=== PATIENT | female | born 1950 | race Caucasian/White ===

== ENCOUNTER 2022-12-21 14:57 | Emergency (ER) | payer MEDICARE, SELFPAY ==
[2022-12-21 15:01] VITALS: BP 135/72; PULSE 95; RESP 20; TEMP 36.9; O2SAT 97; BMI 22.6
--- NOTE | 2022-12-21 15:22 | ED.GENADULT ---
HPI - General Adult General Time Seen by Provider: 15:22 Date Seen: 12/21/22 Chief complaint: Abdominal Pain Stated complaint: stomach pain Time Seen by Provider: 12/21/22 14:58 Source: patient Limitations: no limitations History of Present Illness HPI narrative: Chato is a 72-year-old female with no past medical history presents emergency department via private car with with abdominal pain. Patient states she developed lower abdominal pain on Wednesday, this continued throughout the weekend, pain is mostly lower, she feels gassy and bloated, she does get intermittent left lower quadrant cramping, her last bowel movement was Wednesday, she usually is pretty regular, she did take some milk of Mag to help with her bowel movements, she denies any urinary complaints, no blood in the stool. No associated nausea vomiting, she had been eating throughout the weekend, she did not eat anything today, no changes with food with the pain. Has no history of any abdominal surgeries, she had a colonoscopy 5 years ago which was normal. No fevers but she did have some sweats last night, she did not take her temperature. Pain is minimal at this time. Related Data Home Medications Medication Instructions Recorded Confirmed No Known Home Medications 10/20/22 10/20/22 Previous Rx's Medication Instructions Recorded ciprofloxacin HCl 500 mg tablet 500 mg PO BID 10 days #20 tabs 12/21/22 metronidazole 500 mg tablet 500 mg PO TID 10 days #30 tabs 12/21/22 Allergies Allergy/AdvReac Type Severity Reaction Status Date / Time penicillin Allergy Intermediate Rash Uncoded 10/20/22 08:36 Review of Systems Status of ROS: Reports: 10 or more systems reviewed and unremarkable except as noted in History and below [facility] Medical History Cerumen impaction ?H61.20 - Impacted cerumen, unspecified ear (ICD-10) Social History Smoking Status: Never smoker Non-prescribed substance use: denies use Exam Narrative: Exam Narrative: General: No obvious distress sitting comfortably, she is nontoxic in appearance HEENT: Tympanic membranes within normal limits bilaterally, oropharynx is clear and moist, pupils equal round reactive to light extraocular muscles intact Neck: Full range of motion, supple Heart: Normal sinus rhythm S1-S2 Lungs: CTA bilaterally Abdomen: Soft, tender to palpation left lower quadrant, no distension, bowel sounds present Muscle skeletal: +5 strength upper lower extremities Neuro: Alert awake and oriented x3 Const: Vital Signs, click to edit/add: Vital Signs - 24 hr 12/21/22 15:01 Temperature 98.5 F Pulse Rate [Pulse Oximeter] 95 Respiratory Rate 20 Blood Pressure [Ri ght Upper Arm] 135/72 Pulse Oximetry 97 Oxygen Delivery Me thod Room Air Course Course Hospital Course: 3:10 PM: [place], vitals are normal at this time, workup will include CBC, CRP, CMP, lipase and urinalysis, patient does not want anything for pain, she does not want an IV at this time, differential diagnosis include life-threatening of appendicitis, aortic aneurysm, mesentery ischemia, bowel perforation, volvulus and bowel obstruction. Other differential diagnosis include IBD, cholecystitis pancreatitis hepatitis gastritis diverticulitis GERD, pyelonephritis UTI, renal stone, ovarian cyst/torsion. Likely rule out diverticulitis. Reevaluation(s) Time of Reevaluation #1: 17:22 Reevaluation #1: Imaging IMPRESSION: Acute uncomplicated sigmoid diverticulitis. CBC showed no leukocytosis, mild elevation neutrophil number 79.2, mild elevation in CRP is 6.4, urinalysis showed trace leukocyte esterase and positive nitrite, 1+ protein, moderate bacteria, urine culture was sent, metabolic panel showed mildly elevated total bilirubin 2.0. Imaging showed acute uncomplicated sigmoid diverticulitis. Due to patient's allergy to penicillin plan to treat, ciprofloxacin 500 mg b.i.d. and Flagyl 500 mg t.i.d. over the next 10 days, she should follow up with primary care provider over the next 3-5 days, return precautions given. Vital Signs Vital signs: Initial Vital Signs Temperature 98.5 F 12/21/22 15:01 Temperature Source Temporal Artery Scan 12/21/22 15:01 Pulse Rate 95 12/21/22 15:01 Pulse Rhythm Regular 12/21/22 15:01 Respiratory Rate 20 12/21/22 15:01 Blood Pressure 135/72 12/21/22 15:01 Blood Pressure Mean 93 12/21/22 15:01 Blood Pressure Position Sitting 12/21/22 15:01 Pulse Oximetry 97 12/21/22 15:01 Oxygen Delivery Method Room Air 12/21/22 15:01 Vital Signs Temperature 98.5 F 12/21/22 15:01 Pulse Rate 95 12/21/22 15:01 Respiratory Rate 20 12/21/22 15:01 Blood Pressure 135/72 12/21/22 15:01 Pulse Oximetry 97 12/21/22 15:01 Oxygen Delivery Method Room Air 12/21/22 15:01 Temperature 98.5 F 12/21/22 15:01 Pulse Rate 95 12/21/22 15:01 Respiratory Rate 20 12/21/22 15:01 Blood Pressure 135/72 12/21/22 15:01 Pulse Oximetry 97 12/21/22 15:01 Oxygen Delivery Method Room Air 12/21/22 15:01 Medical Decision Making Lab Data Labs: Lab Results 12/21/22 12/21/22 Range/Units 15:43 15:47 WBC 10.84 (4.50-11.00) K/uL RBC 4.54 (4.00-5.20) m/uL Hgb 13.8 (12.0-16.0) gm/dL Hct 42.8 (33.0-51.0) % MCV 94 (80-100) fL MCH 30 (26-34) pg MCHC 32 (32-36) gm/dL RDW Coeff of Lazaro 12.9 (11.5-15.5) % Plt Count 176 (140-440) K/uL Neut % (Auto) 79.2 H (42.0-72.0) % Lymph % (Auto) 13.4 L (20-44) % [place] % (Auto) 6.6 (0.0-11.0) % Eos % (Auto) 0.4 (0.0-7.0) % Baso % (Auto) 0.3 (0.0-3.0) % Neut # (Auto) 8.60 H (1.7-7.0) K/uL Lymph # (Auto) 1.50 (0.90-2.90) K/uL [place] # (Auto) 0.70 (0.00-0.90) K/UL Eos # (Auto) 0.04 (0.00-0.50) K/uL Baso # (Auto) 0.03 (0.00-0.30) K/uL Abs Immat Gran (auto) 0.01 (0.00-0.30) K/uL Imm/Tot Granulo (auto) 0.1 % Sodium 137 (135-149) mmol/L Potassium 4.1 (3.6-5.1) mmol/L Chloride 101 (96-114) mmol/L Carbon Dioxide 27 (20-32) mmol/L BUN 16 (7-30) mg/dL Creatinine 1.0 (0.5-1.5) mg/dL Estimated Creat Clear 49.00 Estimated GFR 61 ml/min Glucose 104 (60-115) mg/dL Calcium 9.1 (8.4-10.6) mg/dL Total Bilirubin 2.0 H (0.1-1.5) mg/dL AST 18 (12-35) U/L ALT 12 (4-35) U/L Alkaline Phosphatase 72 (40-150) U/L C-Reactive Protein 6.4 H (0.5-1.0) mg/dL Total Protein 7.8 (6.0-8.3) g/dL Albumin 4.3 (3.3-5.0) g/dL Lipase 37 (23-300) U/L Urine Color [place] A (Yellow) Urine Appearance Clear (Clear) Urine pH 5.0 (5.0-8.5) Ur Specific [place] 1.025 (1.000-1.030) Urine Protein 1+ A (Negative) Urine Glucose (UA) Negative (Negative) Urine Ketones 2+ A (Negative) Urine Blood Trace-intact A (Negative) Urine Nitrite Positive A (Negative) Urine Bilirubin 2+ A (Negative) Urine Urobilinogen 0.2 (0.2-1.0) Ur Leukocyte Esterase Trace A (Negative) Urine RBC 0-2 (0-2) Urine WBC 2-5 (0-5) Ur Squamous Epith Cells Few (None-Few) Urine Bacteria Moderate A (None) Fine Granular Casts Few A (None) Discharge Plan Discharge Clinical Impression: Acute diverticulitis Patient Disposition: Home, Self-Care Condition: Improved Instructions: Diverticulitis (ED) Additional Instructions: To slowly increase her diet over the next 3 days, start with clear liquids, high-fiber low-fat, continue with the antibiotics as prescribed, follow-up with primary care provider over the next 3-5 days for ER follow-up and recheck. Activity Level: No Restrictions Discharge Diet: Low Fat/Low Cholesterol and High Fiber Prescriptions: New ciprofloxacin HCl 500 mg tablet 500 mg PO BID 10 Days Qty: 20 0RF metronidazole 500 mg tablet 500 mg PO TID 10 Days Qty: 30 0RF No Action No Known Home Medications Follow Up/Referrals: Jess Sheppard MD [Primary Care Provider] - Stand Alone Forms: [employer] Info Instructions
[2022-12-21 15:46] LABS: Appearance Urine Clear (Clear); Bilirubin Urine 2+ (Negative); Blood Urine Trace-intact (Negative); Color Urine Amber (Yellow); Glucose Urine Negative (Negative); Ketones Urine 2+ (Negative); Leukocyte Esterase Urine Trace (Negative); Nitrite Urine Positive (Negative); Protein Urine 1+ (Negative); Specific Gravity Urine 1.025 (1.000-1.030); Urobilinogen Urine 0.2 (0.2-1.0)
[2022-12-21 15:56] LABS: Basophils Absolute Auto 0.03 K/uL (0.00-0.30); Basophils Percent Auto 0.3 % (0.0-3.0); Eosinophils Absolute Auto 0.04 K/uL (0.00-0.50); Eosinophils Percent Auto 0.4 % (0.0-7.0); Hematocrit 42.8 % (33.0-51.0); Hemoglobin* 13.8 gm/dL (12.0-16.0); Immature Granulocytes Abs Auto 0.01 K/uL (0.00-0.30); Immature Granulocytes Pct Auto 0.1 %; Lymphocytes Percent Auto 13.4 % (20-44); Mean Corpuscular HGB Conc 32 gm/dL (32-36); Mean Corpuscular Hemoglobin 30 pg (26-34); Mean Corpuscular Volume 94 fL (80-100); Monocytes Percent Auto 6.6 % (0.0-11.0); Neutrophils Percent Auto 79.2 % (42.0-72.0); Platelet Count* 176 K/uL (140-440); RDW Coefficient of Variation % 12.9 % (11.5-15.5); Red Blood Count 4.54 m/uL (4.00-5.20); White Blood Count* 10.84 K/uL (4.50-11.00)
[2022-12-21 16:08] LABS: Slide Review Reflex No
[2022-12-21 16:09] LABS: Albumin* 4.3 g/dL (3.3-5.0); Chloride* 101 mmol/L (96-114); Sodium* 137 mmol/L (135-149)
[2022-12-21 16:09] LABS: RBC Urine 0-2 (0-2); Squamous Epithelial Cell Urine Few (None-Few)
[2022-12-21 16:10] LABS: Bacteria Urine Moderate; Fine Granular Casts Urine Few
[2022-12-21 16:10] LABS: Potassium* 4.1 mmol/L (3.6-5.1)
[2022-12-21 16:12] LABS: Carbon Dioxide* 27 mmol/L (20-32); Estimated Glomerular Filt Rate 61 ml/min
[2022-12-21 16:13] LABS: Alanine Aminotransferase* 12 U/L (4-35); Alkaline Phosphatase* 72 U/L (40-150); Aspartate Amino Transferase* 18 U/L (12-35); Blood Urea Nitrogen* 16 mg/dL (7-30); Calcium* 9.1 mg/dL (8.4-10.6); Glucose* 104 mg/dL (60-115); Lipase* 37 U/L (23-300); Total Protein* 7.8 g/dL (6.0-8.3)
[2022-12-21 16:15] LABS: C Reactive Protein* 6.4 mg/dL (0.5-1.0)
--- NOTE | 2022-12-21 16:40 | CRLHL7_ITS ---
For Patients: As a result of the Century Cures Act, medical imaging exams and procedure reports are released immediately into your electronic medical record. You may view this report before your referring provider. If you have questions, please contact your health care provider. INDICATION: Lower quadrant pain diverticulitis.. TECHNIQUE: CT abdomen and pelvis without contrast. COMPARISON: None. FINDINGS: Limited evaluation of the intra-abdominal solid organs without IV contrast. Lower chest: Small to moderate pericardial effusion. Liver: Normal in size and attenuation. No suspicious masses. Gallbladder and bile ducts: Probable gallbladder sludge is noted. No radiopaque gallstones. No pericholecystic fluid. Pancreas: Unremarkable. No mass or inflammation. Spleen: Normal in size. No masses. Adrenal glands: Normal in size. No nodules. Kidneys: Normal in size. No suspicious masses, stones, or hydronephrosis. GI tract: Scattered colonic diverticuli. Wall thickening within the sigmoid colon. Surrounding fat stranding is noted. Mild thickening of the adjacent peritoneum. No focal drainable fluid collections. No evidence of free air. Normal appendix. No bowel obstruction. Small hiatal hernia. Vasculature: Abdominal aorta is normal in caliber. Lymph nodes: No lymphadenopathy. Peritoneum/Abdominal Wall: Unremarkable. No sign of mass or infiltration. No free air or significant free fluid. Pelvis: Unremarkable. No pelvic masses. Bones: 2.6 centimeter well-defined sclerotic lesion in the right ilium, likely bone island. Otherwise, unremarkable for age. IMPRESSION: Acute uncomplicated sigmoid diverticulitis. Please note that all CT scans at this facility use dose modulation, iterative reconstruction, and/or weight-based dosing when appropriate to reduce radiation dose to as low as reasonably achievable. Dictated by Pattie Mcfarland MD @ 12/21/2022 5:10:08 PM (Electronically Signed)
[2022-12-21 18:03] VITALS: BP 129/61; PULSE 82; RESP 14; TEMP 36.9
== END 2022-12-21 18:04 | disposition home or self-care (01) ==
PROVIDERS: Emergency Provider Student in an Organized Health Care Education/Training Program; PCP Family Medicine
DX: K57.92 Diverticulitis of intestine, part unspecified, without perforation or abscess without bleeding (principal)
CPT/HCPCS: 36415; 74176; 80053; 81003; 81015; 83690; 85025; 86140; 87086; 99283; 99284

== ENCOUNTER 2023-02-11 12:54 | Outpatient (CLI) | payer MEDICARE, SELFPAY ==
--- NOTE | 2023-02-11 13:00 | CRLHL7_ITS ---
For Patients: As a result of the Century Cures Act, medical imaging exams and procedure reports are released immediately into your electronic medical record. You may view this report before your referring provider. If you have questions, please contact your health care provider. DXA BONE MINERAL DENSITY STUDY Reason for exam: Osteopenia. Current height (in): 67. Weight (lb): 145. Menopause age: 57. Ethnicity: White. 1. Have you had a previous hip or vertebral fracture? No. 2. Have you had any fractures during your adult life which did not result from significant trauma (e.g., auto accident)? No. 3. Did either of your parents have a hip fracture? Yes. 4. Do you smoke? No. 5. Have you ever taken Glucocorticoids? No. 6. Do you have rheumatoid arthritis? No. 7. Do you have secondary osteoporosis? No. 8. Do you drink 3 or more alcoholic drinks per day? No. 9. Are you being treated for osteoporosis? No. 10. Have you ever taken any of the following medications: Actonel, Evista, Fosamax, Miacalcin, Reclast, Boniva, Forteo, HRT (i.e. estrogen/hormone therapy), Protelos, Prolia, Vitamin D, Calcium, other ??? please specify. ANSWER: Yes, Vitamin D, calcium. 11. Do you have any of the following medical conditions: Anorexia or bulimia, asthma or emphysema, end stage renal disease, hyperparathyroidism, any seizure disorders, cancer, inflammatory bowel diseases, hysterectomy, other ??? please specify. ANSWER: No. 12. What was your maximum height (inches)? 67. 13. Do you perform weight bearing exercise regularly? No. 14. Do you regularly consume dairy products? Yes. 15. Do you drink caffeinated beverages? No. 16. At what age did your period start? 13. 17. Are you premenopausal? No. 18. How many full term pregnancies have you had? 0. 19. Have you ever missed your period for more than 6 months in a row (not including or menopause)? No. TECHNIQUE: Bone mineral density study was performed using the [employer]. FINDINGS: The results of the study expressed as bone mineral density (BMD) are as follows: Lumbar spine L1 to L4: BMD: 0.778 g/cm2. T-score: -2.4. Z-score: -0.3. Neck Left: BMD: 0.561 g/cm2. T-score: -2.6. Z-score: -0.8. Right: BMD: 0.627 g/cm2. T-score: -2.0. Z-score: -0.2. Total Left: BMD: 0.742 g/cm2. T-score: -1.6. Z-score: -0.1. Right: BMD: 0.750 g/cm2. T-score: -1.6. Z-score: -0.1. IMPRESSION: Osteoporosis. *Comparison exams done prior to 10/2019 were performed on different unit, [employer]. COMPARISON: Compared with scan of 06/15/2019, the bone mineral density has increased by 2.0 percent at the spine and increased by 9.6 percent at the hip. Lee Billy M.D. Diagnostic Radiologist [email or web address] [place]/Dictated by: Lee Billy MD @ 02/11/2023 1:43:00 PM (Electronically Signed)
== END 2023-02-11 12:55 | disposition home or self-care (01) ==
PROVIDERS: PCP Internal Medicine; Visit Provider Internal Medicine
DX: M85.80 Other specified disorders of bone density and structure, unspecified site (principal); M81.0 Age-related osteoporosis without current pathological fracture
CPT/HCPCS: 77080

== ENCOUNTER 2023-03-08 11:52 | Outpatient (CLI) | payer MEDICARE, SELFPAY | END 2023-03-08 11:53 | disposition home or self-care (01) | LOC: NFLDREF 11:52 | PROVIDERS: PCP Internal Medicine; Visit Provider Internal Medicine | DX: M81.0 Age-related osteoporosis without current pathological fracture (principal) | CPT/HCPCS: 82306 ==

== ENCOUNTER 2023-03-09 09:32 | Outpatient (CLI) | payer MEDICARE, SELFPAY ==
--- NOTE | 2023-03-09 09:45 | CRLHL7_ITS ---
For Patients: As a result of the Century Cures Act, medical imaging exams and procedure reports are released immediately into your electronic medical record. You may view this report before your referring provider. If you have questions, please contact your health care provider. BILATERAL SCREENING MAMMOGRAM WITH COMPUTER-AIDED DETECTION AND TOMOSYNTHESIS TECHNIQUE: CC and MLO views were obtained. These mammographic images have been obtained using full-field digital technique. These mammographic images were interpreted with the benefit of computer-aided detection. Breast Tomosynthesis was used in this interpretation. COMPARISON FILM: 11/12/20, 11/30/18. FINDINGS: The breasts are heterogeneously dense, which may obscure small masses IMPRESSION: There is no radiographic evidence for malignancy. ASSESSMENT: BI-RADS Category 1: Negative RECOMMENDATION: Routine screening mammogram in 1 year. A lay language report of this examination will be provided to the patient. Lee Billy M.D. Diagnostic Radiologist [email or web address] [place]/Dictated by: Lee Billy MD @ 03/09/2023 12:50:00 PM (Electronically Signed)
== END 2023-03-09 09:33 | disposition home or self-care (01) ==
LOC: MAMMO 09:33
PROVIDERS: PCP Internal Medicine; Visit Provider Internal Medicine
DX: Z12.31 Encounter for screening mammogram for malignant neoplasm of breast (principal); R92.2 Inconclusive mammogram
CPT/HCPCS: 77063; 77067

== ENCOUNTER 2024-10-17 11:04 | Outpatient (CLI) | payer MEDICARE, SELFPAY | END 2024-10-17 11:05 | disposition home or self-care (01) | PROVIDERS: PCP Internal Medicine; Visit Provider Internal Medicine | DX: E03.9 Hypothyroidism, unspecified (principal); M81.0 Age-related osteoporosis without current pathological fracture; I48.91 Unspecified atrial fibrillation | CPT/HCPCS: 80053; 82306; 84443 ==

== ENCOUNTER 2024-10-30 08:45 | Outpatient (CLI) | payer MEDICARE, SELFPAY | END 2024-10-30 08:46 | disposition home or self-care (01) | LOC: RAD 08:46 | PROVIDERS: PCP Internal Medicine; Visit Provider Internal Medicine | DX: I48.91 Unspecified atrial fibrillation (principal); I51.7 Cardiomegaly; I07.1 Rheumatic tricuspid insufficiency; I34.0 Nonrheumatic mitral (valve) insufficiency; I31.39 Other pericardial effusion (noninflammatory) | CPT/HCPCS: 93306 ==

== ENCOUNTER 2025-01-30 11:24 | Outpatient (CLI) | payer MEDICARE, SELFPAY ==
--- NOTE | 2025-01-30 11:30 | CRLHL7_ITS ---
For Patients: As a result of the Century Cures Act, medical imaging exams and procedure reports are released immediately into your electronic medical record. You may view this report before your referring provider. If you have questions, please contact your health care provider. INDICATION: BILATERAL SCREENING MAMMOGRAM, ASYMPTOMATIC 74 Y/O FEMALE COMPARISON: 03/09/2023, 11/12/2020, 11/30/2018 TECHNIQUE: Digital mammogram in CC and MLO projections including computer-aided detection (CAD) and tomosynthesis. BREAST COMPOSITION: The breasts are heterogeneously dense, which may obscure small masses. FINDINGS: No suspicious findings. ASSESSMENT: BI-RADS 1 Negative RECOMMENDATION: Annual screening mammogram. A lay language report of this examination will be provided to the patient. Dictated by: Lee Billy MD @ 01/30/2025 12:25:19 (Electronically Signed)
== END 2025-01-30 11:25 | disposition home or self-care (01) ==
LOC: MAMMO 11:24
PROVIDERS: PCP Internal Medicine; Visit Provider Internal Medicine
DX: Z12.31 Encounter for screening mammogram for malignant neoplasm of breast (principal); R92.333 Mammographic heterogeneous density, bilateral breasts
CPT/HCPCS: 77063; 77067